=== PATIENT | male | born 1960 | race Caucasian/White ===

== ENCOUNTER 2016-12-29 11:35 | Outpatient (CLI) | payer BC ==
[2016-12-29 13:05] LABS: HEMATOCRIT 49.6 % (42.0-54.0); HEMOGLOBIN 16.5 g/dL (13.5-17.5)
[2016-12-29] MEDS ORDERED: XANAX0.5 MG PO (13:51)
[2016-12-29] MEDS ORDERED: PRAVACHOL40 MG PO (13:52)
[2016-12-29 14:07] VITALS: BP 151/93; BMI 30.3
== END 2016-12-29 14:40 | disposition home or self-care (01) ==
LOC: D.OPS 11:35
PROVIDERS: Family Medicine
DX: D75.1 Secondary polycythemia (principal)